=== PATIENT | male | born 1970 | race Caucasian/White ===

== ENCOUNTER 2017-10-13 10:25 | Emergency (ER) | payer OTHER, MEDICARE, MEDICAID ==
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
[2017-10-13 13:12] VITALS: BP 131/86
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
== END 2017-10-13 13:11 | disposition home or self-care (01) ==
LOC: ER 10:25
DX: S49.92XA Unspecified injury of left shoulder and upper arm, initial encounter (principal); S39.012A Strain of muscle, fascia and tendon of lower back, initial encounter; M54.32 Sciatica, left side; M79.1 Myalgia; V87.7XXA Person injured in collision between other specified motor vehicles (traffic), initial encounter
CPT/HCPCS: 99283